=== PATIENT | female | born 1990 | race Caucasian/White ===

== ENCOUNTER 2022-08-09 13:56 | Outpatient (CLI) | payer BC, SELFPAY ==
[2022-08-09 17:25] LABS: Cholesterol* 165 mg/dL (90-199); Triglycerides* 67 mg/dL (40-149)
[2022-08-09 17:26] LABS: HDL Cholesterol* 55 mg/dL (>=50); LDL Cholesterol Calculated 97 mg/dL (<100)
== END 2022-08-09 13:57 | disposition home or self-care (01) ==
PROVIDERS: Visit Provider Registered Nurse
DX: Z01.419 Encounter for gynecological examination (general) (routine) without abnormal findings (principal); Z13.6 Encounter for screening for cardiovascular disorders
CPT/HCPCS: 80061